=== PATIENT | female | born 1980 | race Caucasian/White ===

== ENCOUNTER → 2019-02-10 | Day surgery (SDC) | payer BC ==
[~2019-02-10] MED LIST: ESOM40CA PO; FAMO40TA4 PO; GABA300C18 PO; IV RINGERS,LACTATED 1000ML 1,000 ML IV SCH; LIDOCAINE 2% PF 5 ML VIAL. ONE; PROPOFOL 40 ML IV ONE; SPIR100T4 PO
--- NOTE | 2019-02-10 10:04 | PREOP HP ---
DATE OF SERVICE: 02/10/2019 REQUESTING PHYSICIAN: Uriel Sandhu MD PRIMARY CARE PHYSICIAN: Uriel Sandhu MD REASON FOR PROCEDURE: Epigastric pain. HISTORY OF PRESENT ILLNESS: This is a 38-year-old female who underwent an EGD 02/05/2018 that revealed reflux gastropathy with intestinal metaplasia. She previously had had gastritis with ulceration. She is to undergo upper endoscopy for further evaluation. She continues to have epigastric pain. ALLERGIES: 1. SULFA. 2. PENICILLIN. MEDICATIONS: MAR reviewed. PAST MEDICAL HISTORY: 1. Asthma. 2. Gastroesophageal reflux disease. 3. Gastric intestinal metaplasia. 4. Ulcerative colitis. FAMILY MEDICAL HISTORY: Significant for colon polyps and colon cancer. REVIEW OF SYSTEMS: A 13-point review of systems was done and is positive as per HPI, otherwise negative. PHYSICAL EXAMINATION: VITAL SIGNS: She is afebrile. Vital signs are stable. GENERAL: She is a well-developed, well-nourished female, in no apparent distress. HEENT: Oropharynx is clear. CARDIOVASCULAR: S1, S2. LUNGS: Clear. ABDOMEN: Normoactive bowel sounds, soft, nontender, nondistended. EXTREMITIES: No edema. NEUROLOGIC: Awake, alert, and oriented x 3. ASSESSMENT AND PLAN: 1. Epigastric pain. Proceed with upper endoscopy for further evaluation. The risks and benefits including bleeding, perforation, non-diagnosis and sedation were explained and she has agreed to proceed. JENNIFER OREILLY MD DR: BEATRIZ/zunilda JOB#: [id number] / [id number]
[2019-02-10 10:10] VITALS: BP 109/64
--- NOTE | 2019-02-11 13:07 | PATHOLOGY ---
[facility] Accession Number: [id number] . 01 Material submitted: . PART A: small bowel - SMALL BOWEL BX PART B: stomach - GASTRIC ANTRUM BX PART C: esophagus - DISTAL ESOPHAGUS BX. Modifiers: distal . 01 Clinical history: . GERD . 02 Diagnosis: A. Small bowel, biopsy: - No pathologic diagnosis. - Normal villous architecture. . B. Stomach, antrum, biopsy: - Chronic superficial gastritis, mild, with focal minimal acute activity. . - No evidence of Helicobacter pylori on immunoperoxidase stain. . C. Esophagus, distal, biopsy: - Squamocolumnar epithelium with moderate chronic inflammation. - No evidence of intestinal metaplasia. . (SKM:mm; 02/11/2019) ON LICENSE OF [facility] 02/11/2019 0948 Local . 02 Electronically signed: . Maximus Will MD, Pathologist NPI- [id number] . 01 Gross description: . A. The specimen is received in formalin, labeled "Priscilla Milladore, small bowel biopsy". Received are five segments of pale frost soft tissue ranging in size from 0.2 to 0.8 cm in maximum dimensions. The specimen is submitted entirely in cassette A1. . B. The specimen is received in formalin, labeled "Priscilla Milladore, gastric antrum biopsy". Received are four segments of pale frost soft tissue ranging in size from 0.3 to 0.5 cm in maximum dimensions. The specimen is submitted entirely in cassette B1. . C. The specimen is received in formalin, labeled "Priscilla Milladore, distal esophagus biopsy". Received are three segments of pale frost soft tissue ranging in size from 0.3 to 0.4 cm in maximum dimensions. The specimen is submitted entirely in cassette C1. (CAA; 02/10/2019) QAC/QAC 02/10/2019 1502 Local . 02 Pathologist provided ICD-10: K29.30, K20.8 . 02 CPT . 294446, 519691, 065560, [id number] Specimen Comment: A courtesy copy of this report has been sent to [phone] Specimen Comment: [id number] Specimen Comment: Report sent to / DR VINES Performed at: 01 [facility] [address] [facility] [address], [place] [id number] MD Nde Michael MD Phone: [phone] Performed at: 02 [facility] [address] [place], [place] [id number] MD Pedro Payne MD Phone: [phone]
== END ==
LOC: ENDOS 09:11
PROVIDERS: ATTEND Internal Medicine Gastroenterology
DX: R10.13 Epigastric pain (principal); K21.0 Gastro-esophageal reflux disease with esophagitis; K51.90 Ulcerative colitis, unspecified, without complications; J45.909 Unspecified asthma, uncomplicated; Z88.1 Allergy status to other antibiotic agents; Z88.0 Allergy status to penicillin
CPT/HCPCS: 43239; 81025; J2001; J2704